=== PATIENT | male | born 1985 | race Caucasian/White ===

== ENCOUNTER 2024-12-30 14:47 | Emergency (ER) | payer OTHER, BC, SELFPAY ==
--- NOTE | ~2024-12-30 | XR_ITS ---
CLINICAL HISTORY: low back pain 3 views lumbar spine Comparison: None Findings: Normal vertebral body alignment. No acute fractures or dislocation. No significant degenerative change. IMPRESSION: No acute findings. This document has been electronically signed by: Jeison Navarrete MD on 12/30/2024 19:25:15
[2024-12-30 15:04] VITALS: BP 131/96; PULSE 85; RESP 20; TEMP 36.6; O2SAT 96; BMI 32.4
--- NOTE | 2024-12-30 15:05 | ED.BACK ---
HPI - Back Pain/Injury General Chief Complaint: Back Pain/Injury Stated Complaint: back inj Time Seen by Provider: 12/30/24 19:35 Source: patient, RN notes reviewed and old records reviewed Mode of arrival: ambulatory History of Present Illness ED Provider: Zainab Ernandez PA-C HPI Narrative: 39-year-old male with no significant past medical history presenting to the ED complaining of right-sided low back pain s/p picking up heavy saw at work [employer]. States heard a pop, denies direct injury/ trauma or fall. States pain is nonradiating. Denies numbness, tingling, weakness, incontinence /retention, fever Related Data Previous Rx's ?Medication ?Instructions ?Recorded acetaminophen 500 mg tablet 500 mg PO Q6H PRN fever or pain 12/30/24 (Tylenol Extra Strength) #14 tabs cyclobenzaprine 10 mg tablet 10 mg PO TID PRN muscle spasm #12 12/30/24 tabs lidocaine 5 % topical patch 1 patch topical DAILY PRN pain #30 12/30/24 (Lidoderm) ea naproxen 500 mg tablet 500 mg PO BID PRN pain 10 days #20 12/30/24 tabs Allergies Allergy/AdvReac Type Severity Reaction Status Date / Time No Known Allergies Allergy Verified 12/30/24 15:07 Review of Systems Review of Systems: Yes all other systems are reviewed and are negative Constitutional: Constitutional: Reports as per [facility] Past Medical History Attestation statement: The following information was validated with the patient. Source: old records reviewed Social History Social History Do you have a plan to hurt others: No Plan Physical Exam Vital Signs: Vital Signs: Last Vital Signs Temp 97.8 F 12/30/24 19:39 Pulse 71 12/30/24 19:39 Resp 17 12/30/24 19:39 BP 144/91 H 12/30/24 19:39 Pulse Ox 98 12/30/24 19:39 O2 Del Method Room Air 12/30/24 19:39 BMI result Body Mass Index 32.4 Const: General: cooperative, healthy appearing and no acute distress Orientation/consciousness: patient oriented x3 Limitations: no limitations HEENT: Head: Yes normal to inspection and Yes atraumatic Ears: hearing grossly normal bilaterally General nose exam: Normal external nose present Face and sinus: Yes normal facial exam Eyes: General: appearance normal, both eyes and all related structures EOM: EOMs intact bilaterally Neck: Neck: Yes normal visual inspection and Yes no meningeal signs Resp: Effort & Inspection: normal respiratory effort and no respiratory distress Cardio: Rate: regular rate GI: Inspection: Yes normal to inspection Palpation (GI): Soft to palpation, nontender, no guarding and not rigid : General: Yes no CVA tenderness Back/Spine/Pelvis: Other: No midline cervical/thoracic/lumbar spinous tenderness/step-off or deformity. + reproducible right lumbar MSK tenderness to palpation. No erythema / ecchymosis or rash. Back: no CVA tenderness Skin: Rashes: no rashes Wounds: no wounds Neuro: Other: Strength intact throughout. No saddle anesthesia. Sensation intact to light touch. Neurovascular intact distally General: patient oriented x3, tone normal, moves all extremities, no meningeal signs and no focal motor deficits Cranial nerves: Yes CN's II-XII intact bilaterally Cognition (Neuro): normal cognition Gait exam (Neuro): Antalgic gait present Motor exam (neuro): 5/5 motor strength present throughout Extrem: General: Yes normal to inspection Course Course Course Narrative: This is a Rapid Medical Exam performed in triage by Zainab Ernandez PA-C. Full HPI, ROS and PE to be performed by primary ED provider. 39yo M presenting to the ED c/o right sided low back pain s/p picking up heavy saw at work [employer] & hearing back pop. Pain is non-radiating. denies incontinence/retention. PE: unable to sit. no midline spinous tenderness. Reproducible right paraspinal/ MSK tenderness Plan: XR, pain control XR lumbar spine 2-3V IMPRESSION: No acute findings. Results discussed with patient including worrisome signs and symptoms and strict return precautions, and when to return to the emergency department. They verbalized understanding and feel safe for discharge at this time. Medications Administered Discontinued Medications Generic Name Dose Route Start Last Admin Trade Name Serge PRN Reason Stop Dose Admin Ketorolac Tromethamine 30 mg 12/30/24 19:36 12/30/24 19:40 Ketorolac Tromethamine 30 Mg/Ml Vial IM 12/30/24 19:37 30 mg ONCE ONE Administration Lidocaine 1 patch 12/30/24 19:36 12/30/24 19:40 Lidocaine 4 % Patch Adh..Patch TRANSDERMA 12/30/24 19:37 1 patch ONCE ONE Administration Protocol Medical Decision Making Medical Decision Making [facility] Narrative: 39-year-old male with no significant past medical history presenting to the ED complaining of right-sided low back pain s/p picking up heavy saw at work [employer]. On exam vital signs stable, NAD, nontoxic appearing, no midline spinous tenderness throughout. No red flag symptoms. Ambulating with antalgic gait. Concern for MSK pain / strain and spasming vs disc herniation. Lower suspicion for fracture, cauda equina, cord compression, epidural abscess Plan: X-ray, pain control Please refer to course for remaining clinical decision making, interpretation of labs/imaging results, and discussions with consultants and/or family members. Differential Diagnosis Differential Diagnoses: The differential diagnosis associated with the presentation includes As above Admission/Observation Consideration of admission/observation: Escalation of care including admission/observation considered Lab Data [facility] Lab Attestation statement: I reviewed the patient's lab results. Independent Interpretation I performed an independent interpretation of an: Plain X-Ray Radiology Impression Discussion of test interpretation with radiology: I have reviewed the radiologist's reading. External Record Review External record reviewed: Inpatient record, Office record, Outpatient record, Prior outpatient labs, Prior outpatient radiology, Primary care record and Outside ED record Tests considered The following testing was considered but not selected: As above Prescription Management I considered prescription management with: Pain Medication Chronic Conditions Patient?s care impacted by: Other Social Determinants Patient?s care significantly limited by Social Determinants of Health including: Other Social Determinant of Health Discharge Plan Discharge Clinical Impression: Strain of lumbar region Patient Disposition: Home, Self-Care Instructions: Acute Low Back Pain (ED) Additional Instructions: your x-rays unremarkable Your pain is likely musculoskeletal Flexeril is a muscle relaxer, take at night as it makes you drowsy, do not drive, drink alcohol, or operate machinery while taking it Naproxen as an anti-inflammatory / pain medication, take with food Lidoderm patches are numbing patches, apply to painful area In addition take Tylenol at home If symptoms persist or worsen, pain becomes unbearable, you developed urinary retention or incontinence, or weakness return to the ED Prescriptions: New acetaminophen [Tylenol Extra Strength] 500 mg tablet 500 mg PO Q6H PRN (Reason: fever or pain) Qty: 14 0RF lidocaine [Lidoderm] 5 % adhesive patch,medicated 1 patch topical DAILY MDD remove after 12 hours PRN (Reason: pain) Qty: 30 0RF Rx Instructions: leave on most painful area for up to 12 hrs naproxen 500 mg tablet 500 mg PO BID PRN (Reason: pain) 10 Days Qty: 20 0RF cyclobenzaprine 10 mg tablet 10 mg PO TID PRN (Reason: muscle spasm) Qty: 12 0RF Referrals: [facility] [Provider Group] Physical Therapy - [facility] [Outside] [facility] [Outside] Print Language: Serbian
[2024-12-30 19:39] VITALS: BP 144/91; PULSE 71; RESP 17; TEMP 36.6; O2SAT 98
[2024-12-30] MEDS: Ketorolac Tromethamine 30 MG/ML VIAL IM (19:40)
[2024-12-30] MEDS: Lidocaine 4 % Patch ADH..PATCH 1 PATCH TRANSDERMA (19:40)
[2024-12-30 19:48] VITALS: BP 144/91; PULSE 71; RESP 17; TEMP 36.6; O2SAT 98
--- OUTSIDE RECORDS SUMMARY | 2024-12-30 19:50 | XMS_ITS | Clinical Summary ---
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 Dr. Presley Medical History Medical History Date Comments History of anabolic steroid use DX:History of anabolic steroid use Family History Medical History Relation Name Comments Hypertension Father Hypercholestero lemia No Known Problems Maternal Grandfather No Known Problems Maternal Grandmother Coronary artery disease Mother valv e replacements, Pacemaker Heart disease Mother pacemaker Other: Polio Paternal Grandfather in chil dhood Diabetes Paternal Grandmother Relation Name Status Comments Father Alive Maternal Grandfather Alive Maternal Grandmother Alive Mother Alive Paternal Grandfather Paternal Grandmother Social History Tobacco Use Types Packs/Day Years Used Date Smoking Tobacco: Never Smokeless Tobacco: Current Alcohol Use Standard Drinks/Week Comments Yes 0 (1 standard drink = 0.6 oz pur e alcohol) Sex and Gender Information Value Date Recorded Sex Assigned at Not on file Legal Sex Male 10:03 PM EST Gender Identity Not on file Sexual Orientation Not on file Obstetrics History Last Filed Vital Signs Vital Sign Reading Time Taken Comments Blood Pressure 131/58 02/26/2022 1:11 PM EDT Pulse 67 02/26/2022 1:11 PM EDT Temperature - - Respiratory Rate - - Oxygen Saturation - - Inhaled Oxygen Concentration - - Weight 92.2 kg (203 lb 3.2 oz) 02/26/2022 1:11 P M EDT Height 177.8 cm (5' 10 ) 02/26/2022 1:11 PM EDT Body Mass Index 29.16 02/26/2022 1:11 PM EDT Plan of Treatment Health Maintenance Due Date Last Done Comments Hepatitis B Vaccines (1 of 3 - 19+ 3-dose series) 2005 Cholesterol Screening (Lipid Panel) 10/04/2022 Depression Screening 10/04/2022 HIV Screening 10/04/2022 Hepatitis C Screening 10/04/2022 Social Influencers of Health Screening 10/04/2022 DTaP,Tdap,and Td Vaccines (2 - Td or Tdap) 01/13/2023 01/13/2013 COVID-19 Vaccine (1 - 2023-2 5 season) 2024 Influenza Vaccine (#1) 2024 HIB Vaccines Aged Out No longer eligi ble based on patient's age to complete this topic HPV Vaccines Aged Out No longer eligi ble based on patient's age to complete this topic Hepatitis A Vaccines Aged Out No long er eligible based on patient's age to complete this topic IPV Vaccines Aged Out No longer eligi ble based on patient's age to complete this topic MMR Vaccines Aged Out No longer eligi ble based on patient's age to complete this topic Meningococcal ACWY Vaccine Aged Out N o longer eligible based on patient's age to complete this topic Meningococcal B Vacine Aged Out No lo nger eligible based on patient's age to complete this topic Pneumococcal Vaccine: Pediat rics (0 to 5 Years) and At-Risk Patients (6 to 64 Years) Aged Out No longer eligi ble based on patient's age to complete this topic RSV Immunization Patients Un greg 20 months Aged Out No longer eligible b ased on patient's age to complete this topic Varicella Vaccines Aged Out No longer eligible based on patient's age to complete this topic Care Teams Field Crop Farmer Relationship Specialty Start Date End Date Segun Worrell DO PCP - General Internal Medicine 11/05/21
--- OUTSIDE RECORDS SUMMARY | 2024-12-30 19:50 | XMS_ITS | Clinical Summary ---
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 Role Phone Unavailable Primary Care Provider Unavailabl e Social History Tobacco Use Types Packs/Day Years Used Date Smoking Tobacco: Never Assessed Sex and Gender Information Value Date Recorded Sex Assigned at Not on file Gender Identity Not on file Sexual Orientation Not on file Plan of Treatment Health Maintenance Due Date Last Done Comments Hepatitis C Virus Screening 1986 HIV Screening 1999 DTaP/Tdap/Td Vaccines (1 - Tdap) 2005 Hepatitis B Vaccines (1 of 3 - 19+ 3-dose series) 2005 COVID-19 Vaccine ( - 2023-2 5 season) 2024 HPV Vaccines Aged Out No longer eligi ble based on patient's age to complete this topic Pneumococcal Vaccine: Pediat fartun (0-5 Years) and At-Risk Patients (6 to 49 Years) Aged Out No longer eligible b ased on patient's age to complete this topic
== END 2024-12-30 19:50 | disposition home or self-care (01) ==
LOC: HO.ED 19:49
PROVIDERS: Emergency Provider Student in an Organized Health Care Education/Training Program
DX: S39.012A Strain of muscle, fascia and tendon of lower back, initial encounter (principal); X50.0XXA Overexertion from strenuous movement or load, initial encounter; Y93.9 Activity, unspecified; Y92.9 Unspecified place or not applicable; Y99.0 Civilian activity done for income or pay
CPT/HCPCS: 72100; 96372; 99283; 99284; J1885

== ENCOUNTER → 2024-12-30 18:42 | Outpatient (BNV) | payer OTHER, BC, SELFPAY | PROVIDERS: Emergency Provider Student in an Organized Health Care Education/Training Program; Visit Provider Specialist | DX: M54.59 Other low back pain (principal) | CPT/HCPCS: 72100 ==